=== PATIENT | female | born 1995 | race Two or more races ===

== ENCOUNTER 2017-08-24 23:47 | Emergency (ER) | payer MEDICAID ==
[~2017-08-24] VITALS: Ht 149.9 cm; Wt 98.4 kg
[2017-08-25 01:16] LABS: Eosinophils # (auto) 0.1 uL; Red Cell Distribution Width 15.4 % (11.8-14.3)
[2017-08-25 01:17] LABS: Basophils # (auto) 0.3 uL; Basophils % (auto) 1.6 % (0.0-2.0); Eosinophils % (auto) 0.5 % (0.0-7.0); Hematocrit 38.9 % (36.0-46.0); Lymphocytes # (auto) 2.5 uL; Lymphocytes % (auto) 16.2 % (10.0-50.0); Mean Corpuscular Hemoglobin 27.1 pg (28.0-32.0); Mean Corpuscular Hgb Conc. 33.5 g/dL (32.0-36.0); Mean Corpuscular Volume 80.8 fL (80.0-100.0); Monocytes # (auto) 0.7 uL; Monocytes % (auto) 4.6 % (0.0-12.0); Neutrophils # (auto) 11.9 uL; Neutrophils % (auto) 77.1 % (37.0-80.0); Platelet Count (auto) 430 10^3/uL (140-450); Red Blood Cells 4.82 10^6/uL (4.0-5.20); White Blood Cell 15.5 10^3/uL (4.4-10.8)
[2017-08-25 01:26] VITALS: BP 146/87
[2017-08-25 01:40] LABS: Albumin 3.6 g/dL (3.4-5.0); BUN/Creatinine Ratio 12.9; Calcium 8.8 mg/dL (8.5-10.1); Potassium 3.6 mmol/L (3.5-5.1)
[2017-08-25 01:42] LABS: Bilirubin, Total 0.3 mg/dL (0.2-1.0); Total Protein 8.2 g/dL (6.4-8.2)
== END 2017-08-25 02:31 | disposition home or self-care (01) ==
LOC: ER 23:50
DX: S46.819A Strain of other muscles, fascia and tendons at shoulder and upper arm level, unspecified arm, initial encounter (principal); R51 Headache; X58.XXXA Exposure to other specified factors, initial encounter; Y93.89 Activity, other specified; Y92.89 Other specified places as the place of occurrence of the external cause; Y99.8 Other external cause status
CPT/HCPCS: 36415; 70450; 80053; 85025